=== PATIENT | female | born 1945 | race Caucasian/White ===

== ENCOUNTER 2019-03-12 05:59 | Inpatient (IN) | payer MEDICARE, BC ==
[~2019-03-12] VITALS: Ht 165.1 cm; Wt 77.7 kg
[~2019-03-12 05:59] MED LIST: ATOR20 PO; CETI5 PO; CHOL10002 PO; FISH OIL 1,0001 EAC2 PO; Flecainide Ace150 MG PO; Hair, Skin & N1 EACH PO; METO50ER PO; MONT10T PO; RALO60 PO; RANI150EL PO; XARELTO20 MG PO
--- NOTE | 2019-03-12 06:35 | NUR ---
Ambulatory in Day Surgery History, Chart, Medications and Allergies reviewed before start of procedure. Lungs clear T/O to Auscultation. Patient confirms NPO status and agrees with scheduled surgery. Pre-Op teaching done. Pt verbalizes understanding.
[2019-03-12] MEDS ORDERED: Zantac150 MG PO (06:56)
--- NOTE | 2019-03-12 11:33 | NUR ---
03/12/19 1133 Phylicia Cunningham all counts correct.
--- NOTE | 2019-03-12 17:07 | NUR ---
PT ARRIVED TO THE ROOM AT APPROXIMATELY 1315. PT ALERT AND ORIENTED UPON ARRIVAL TO THE ROOM. DRESSING TO R HIP C/D/I. PT DENIES PAIN.
--- NOTE | 2019-03-12 17:53 | NUR ---
PT WAS ADMITTED FOR A RIGHT TOTAL HIP ARTHROPLASTY, PT HAD SPINAL ANESTHESIA, EATS REGULAR DIET, USE BEDSIDE COMMODE FOR TOILTETING, PT STATES RIGHT ARM WEAKNESS, HISTORY OF A-FIB, ALERT AND ORIENTED, WAS ABLE TO URINATE, ESTIMATED BLOOD LOSS OF 300ML DURING SURGERY, NO BP ON RIGHT ARM, HX R MASTECTOMY, HX SKIN CANCER. 1 PERSON ASSIST TO TRANSFER.
--- NOTE | 2019-03-12 19:19 | NUR ---
SHIFT SUMMARY PAIN HAS BEEN MANAGED WITH TYLENOL AND TORADOL POST-OP. PT HAS BEEN ALERT AND ORIENTED POST-OP. PT IS A 1 ASSIST WITH GAIT BELT AND WALKER. PT HAS BEEN UP TO THE CHAIR. SHE IS TOLERATING PO, VOIDING. VSS. WILL MONITOR UNTIL REPORT TO ONCOMING RN.
[2019-03-13 04:52] LABS: BASOPHILS ABSOLUTE AUTO 0.03 K/mm3 (0.00-0.23); BASOPHILS PERCENT AUTO 0 % (0-2); EOSINOPHILS ABSOLUTE AUTO 0.15 K/mm3 (0.00-0.68); EOSINOPHILS PERCENT AUTO 2 % (0-6); Hematocrit 31.9 % (33.0-51.0); Hemoglobin 10.4 g/dL (11.5-16.0); IMMATURE GRAN ABSOLUTE AUTO 0.03 K/mm3 (0.00-0.10); IMMATURE GRAN PERCENT AUTO 0 % (0-1); LYMPHOCYTES ABSOLUTE AUTO 1.07 K/mm3 (0.84-5.20); LYMPHOCYTES PERCENT AUTO 13 % (21-46); MONOCYTES ABSOLUTE AUTO 0.79 K/mm3 (0.16-1.47); MONOCYTES PERCENT AUTO 9 % (4-13); Mean Corpuscular HGB 30.8 pg (26.0-34.0); Mean Corpuscular HGB Conc 32.6 g/dL (31.5-36.5); Mean Corpuscular Volume 94 fL (80-100); Mean Platelet Volume 10.6 fL (9.1-12.4); NEUTROPHILS ABSOLUTE AUTO 6.49 K/mm3 (1.96-9.15); NEUTROPHILS PERCENT AUTO 76 % (41-73); Platelet Count 212 K/mm3 (150-400); RDW Coefficient Variation 11.9 % (11.7-14.2); RDW Standard Deviation 40.7 fL (35.1-46.3); Red Blood Cell Count 3.38 M/mm3 (3.80-5.20); White Blood Cell Count 8.56 K/mm3 (4.00-11.30)
[2019-03-13 05:11] LABS: Anion Gap 7 mmol/L (6-16); Blood Urea Nitrogen 15 mg/dL (8-24); Bun/Creatinine Ratio 25.9 (12.0-20.0); CO2, Blood 28 mmol/L (21-32); Calcium, Blood 8.1 mg/dL (8.5-10.1); Chloride, Blood 104 mmol/L (98-108); Creatinine, Blood 0.58 mg/dL (0.40-1.00); Glomerular Filtration Rate >60 (60-); Glucose, Blood 104 mg/dL (70-99); Magnesium, Blood 2.1 mg/dL (1.6-2.4); Potassium, Blood 3.6 mmol/L (3.5-5.5); Sodium, Blood 139 mmol/L (136-145)
--- NOTE | 2019-03-13 07:25 | NUR ---
SHIFT SUMMARY PT IS POD 1 RIGHT RYDER. PT HAS BEEN GENERALLY COMFORTABLE OVERNIGHT, MEDICATED WITH SCHEDULED TORADOL/TYLENOL WITH GOOD EFFECT. SHOULD D/C HOME TODAY AFTER PT. PT IS A 1 ASSIST UP WITH FWW AND GB. EATING, DRINKING, VOIDING WITHOUT ISSUE. REPORT PASSED TO ONCOMING SHIFT.
[2019-03-13] MEDS ORDERED: ACET500 PO (09:48)
[2019-03-13] MEDS ORDERED: OXYC5 PO (09:48)
--- NOTE | 2019-03-13 11:55 | NUR ---
SHIFT ASSESSMENT SHIFT ASSESSMENT DOCUMENTATION BY AGA STUDENT NURSE WAS REVIEWED AND THIS RN AGREES WITH THAT DOCUMENTATION AND ASSESSMENT. WILL CONTINUE TO MONITOR.
--- NOTE | 2019-03-13 16:23 | NUR ---
DISCHARGE PT AND SPOUSE WERE PROVIDED WITH WRITTEN AND VERBAL DISCHARGE INSTRUCTIONS. THEY REPORTED UNDERSTANDING AFTER QUESTIONS WERE ANSWERED. PT WAS GIVEN CLEAN SURGICAL DRESSINGS AND INSTRUCTED HOW AND WHEN TO CHANGE THE DRESSING. PT AND SPOUSE WERE ALSO EDUCATED ABOUT HAND WASHING. PT ALERT AND ORIENTED AT TIME OF DISCHARGE. PT WAS ASSISTED OUT IN A W/C BY MARKEL BARR AND AGA STUDENT NURSE.
--- NOTE | 2019-03-13 16:24 | NUR ---
DISCHARGE PT WAS DISCHARGED. JARROD BARNARD GAVE INSTRUCTIONS PATIENT VERBALIZED UNDERSTANDING.
== END 2019-03-13 16:30 | disposition home or self-care (01) | DRG 470 ==
LOC: SURS 05:59 → PRE IP 07:30 → SURS 14:23
PROVIDERS: ADMIT Orthopaedic Surgery
PROC: 0SR904Z Replacement of Right Hip Joint with Ceramic on Polyethylene Synthetic Substitute, Open Approach (ICD-10-PCS; principal; 2019-03-12 07:30)
DX: M16.11 Unilateral primary osteoarthritis, right hip (principal); I48.0 Paroxysmal atrial fibrillation; E78.5 Hyperlipidemia, unspecified; J45.909 Unspecified asthma, uncomplicated; Z85.3 Personal history of malignant neoplasm of breast; Z85.820 Personal history of malignant melanoma of skin; K21.9 Gastro-esophageal reflux disease without esophagitis
CPT/HCPCS: 36415; 72170; 80048; 83735; 85025; 88300; 97110; 97116; 97162; 97530; C1776; J0171; J0690; J1885; J2250; J2704; J2795; J3010; J7120

== ENCOUNTER 2021-09-21 09:54 | Day surgery (SDC) | payer MEDICARE, BC ==
[~2021-09-21] VITALS: Ht 165.1 cm; Wt 78.3 kg
[~2021-09-21 09:54] MED LIST changes: +ACET500 PO; +OXYC5 PO; +Zantac150 MG PO
--- NOTE | 2021-09-22 05:44 | NUR ---
PT IS A/OX3 WITH SOME FORGETFULLNESS/CONFUSION. ABLE TO MAKE HER NEEDS KNOWN. NO EVENTS OVERNIGHT. PT IS S/P LTHA. AQUACEL TO LT HIP CDI. POLAR PACK IN PLACE TO LT HIP. VOIDING WELL. ROOM AIR. TOLERATING REG DIET. DENIED ANY N/V. REFUSED AM LABS.
[2021-09-22 09:02] LABS: BASOPHILS ABSOLUTE AUTO 0.02 K/mm3 (0.00-0.23); BASOPHILS PERCENT AUTO 0 % (0-2); EOSINOPHILS PERCENT AUTO 0 % (0-6); Hemoglobin 10.4 g/dL (11.5-16.0); IMMATURE GRAN ABSOLUTE AUTO 0.04 K/mm3 (0.00-0.10); IMMATURE GRAN PERCENT AUTO 0 % (0-1); LYMPHOCYTES ABSOLUTE AUTO 0.69 K/mm3 (0.84-5.20); LYMPHOCYTES PERCENT AUTO 5 % (21-46); MONOCYTES ABSOLUTE AUTO 0.82 K/mm3 (0.16-1.47); MONOCYTES PERCENT AUTO 6 % (4-13); Mean Corpuscular HGB 30.2 pg (26.0-34.0); Mean Corpuscular HGB Conc 34.7 g/dL (31.5-36.5); Mean Corpuscular Volume 87 fL (80-100); NEUTROPHILS ABSOLUTE AUTO 12.01 K/mm3 (1.96-9.15); NEUTROPHILS PERCENT AUTO 89 % (41-73); Platelet Count 225 K/mm3 (150-400); RDW Coefficient Variation 12.5 % (11.7-14.2); RDW Standard Deviation 39.8 fL (35.1-46.3); Red Blood Cell Count 3.44 M/mm3 (3.80-5.20); White Blood Cell Count 13.58 K/mm3 (4.00-11.30)
[2021-09-22 09:19] LABS: Anion Gap 8 mmol/L (6-16); Blood Urea Nitrogen 18 mg/dL (8-24); Bun/Creatinine Ratio 31.9 (12.0-20.0); CO2, Blood 24 mmol/L (21-32); Calcium, Blood 8.6 mg/dL (8.5-10.1); Chloride, Blood 103 mmol/L (98-108); Creatinine, Blood 0.56 mg/dL (0.40-1.00); Glomerular Filtration Rate >60 (60-); Glucose, Blood 154 mg/dL (70-99); Potassium, Blood 4.3 mmol/L (3.5-5.5); Sodium, Blood 135 mmol/L (136-145)
[2021-09-22] MEDS ORDERED: ACET500 PO (10:24)
[2021-09-22] MEDS ORDERED: OXYC5 PO (10:28)
--- NOTE | 2021-09-22 11:02 | NUR ---
DC'D HOME, DC INSTRUCTIONS GIVEN, VERBALIZED UNDERSTANDING, IV DC'D, CATH INTACT, PT DC'D W/ .
== END 2021-09-22 10:59 | disposition home or self-care (01) ==
LOC: ORSCMMR 09:54 → ORD 11:30 → ORSCMMR 11:30 → SURS 15:23 → ORSCMMR 09-22 10:59
PROVIDERS: Orthopaedic Surgery
PROC: 0SRB0JA Replacement of Left Hip Joint with Synthetic Substitute, Uncemented, Open Approach (ICD-10-PCS; principal; 2021-09-21 11:30)
DX: M16.12 Unilateral primary osteoarthritis, left hip (principal); I48.0 Paroxysmal atrial fibrillation; Z79.01 Long term (current) use of anticoagulants; I10 Essential (primary) hypertension; I25.10 Atherosclerotic heart disease of native coronary artery without angina pectoris; K21.9 Gastro-esophageal reflux disease without esophagitis; J45.909 Unspecified asthma, uncomplicated; Z79.899 Other long term (current) drug therapy
CPT/HCPCS: 36415; 72170; 80048; 83735; 85025; 97110; 97116; 97162; A9270; C1713; C1776; J0171; J0690; J0735; J1100; J1885; J2250; J2405; J2704; J2795; J3010; J7120

== ENCOUNTER 2025-05-07 07:57 | Day surgery (SDC) | payer MEDICARE, BC ==
[~2025-05-07] VITALS: Ht 165.1 cm; Wt 76.0 kg
[2025-05-07] VITALS (17 sets, daily range): BP systolic 102–181; BP diastolic 56–88
[~2025-05-07 07:57] MED LIST changes: +CALCIUM 500 MG1 EAC2 PO; +CENTRUM SILVER1 EAC2 PO; +ESTRADIOL CREAM; +FAMO40 PO; +FISH OIL 1,0001 EA10 PO
--- NOTE | 2025-05-07 08:07 | NUR ---
05/07/25 0807 Annabel Drake CONFIRMED AND REVIEWED H&P, MEDCICATIONS, ALLERGIES, MEDICAL HISTORY, RESPIRATORY HISTORY, VITAL SIGNS, 3-LEAD EKG, CONSENTS, AND PHYSICIAN ORDERS. PATIENT CONFIRMS NPO STATUS AND AGREES WITH SCHEDULED PROCEDURE. MONITOR INTACT WITH CONTINUOUS PULSE OXIMETRY, CAPNOGRAPHY, 3-LEAD EKG, INTERMITTENT BP. SUPPLEMENTAL O2 TO BE TITRATED THROUGHOUT PROCEDURE TO MAINTAIN O2 SATURATION ABOVE 90%. PATIENT DETERMINED TO BE ASA APPROPRIATE FOR PROPOFOL SEDATION PRIOR TO START OF PROCEDURE BY DR. MEDINA.
[2025-05-07] MEDS ORDERED: Midazolam HCl 1MG / ML 2ML Vial ONE (08:11)
--- NOTE | 2025-05-07 08:37 | NUR ---
History, Chart, Medications and Allergies reviewed before start of procedure.Lungs clear T/O to Auscultation. Patient confirms NPO status and agrees with scheduled surgery. Pre-Op teaching done. Pt verbalizes understanding.
--- NOTE | 2025-05-07 09:58 | NUR ---
REPORT RECEIVED FROM OLIVA GARAY. VSS. PT ON RA. PT A&OX4. PT ABLE TO REPOSITION SELF IN BED. PT REQUESTING PO FLUIDS AND TOLERATING THEM WELL. PT DENIES PAIN, NAUSEA OR OTHER DISCOMFORTS.
== END 2025-05-07 10:20 | disposition home or self-care (01) ==
LOC: ORSCMMR 07:57 → ORD 08:30 → ORSCMMR 10:20
PROVIDERS: Internal Medicine Gastroenterology
PROC: 0DBN8ZX Excision of Sigmoid Colon, Via Natural or Artificial Opening Endoscopic, Diagnostic (ICD-10-PCS; principal; 2025-05-07 08:30)
DX: Z12.11 Encounter for screening for malignant neoplasm of colon (principal); R19.5 Other fecal abnormalities; Z86.0100 Personal history of colon polyps, unspecified; D12.5 Benign neoplasm of sigmoid colon; I48.0 Paroxysmal atrial fibrillation; Z79.01 Long term (current) use of anticoagulants; J45.909 Unspecified asthma, uncomplicated; Z85.3 Personal history of malignant neoplasm of breast; Z79.899 Other long term (current) drug therapy; Z96.643 Presence of artificial hip joint, bilateral
CPT/HCPCS: 88305; J2250; J2704; J7120